=== PATIENT | male | born 1950 | race Hispanic/Latino ===

== ENCOUNTER 2017-10-19 10:09 | Emergency (ER) | payer OTHER ==
--- OUTSIDE RECORDS SUMMARY | 2017-10-19 10:11 | XMS REPORT ---
:1950 Author Organization e[employer] Care Team Providers Name Role Phone Christiane Contreras Provider Role Unavailable Allergies, Adverse Reactions, Alerts Substance Reaction Event Type N.K.D.A. Info Not Available Non Drug Allergy Problems Problem Type Condition Code Onset Dates Condition Status Problem Elevated serum creatinine R79.89 Active Problem Uncontrolled type 2 diabetes E11.65 Active mellitus without complication, without long-term current use of insulin Problem Elevated blood pressure reading in R03.0 Active office without diagnosis of hypertension Problem Vitamin D deficiency E55.9 Active Problem Eosinophilia D72.1 Active Problem Cough R05 Active Problem Erectile dysfunction N52.9 Active Problem Pure hypercholesterolemia E78.00 Active Problem Former smoker Z87.891 Active Problem Onychomycosis B35.1 Active Assessment Eosinophilia D72.1 Active Assessment Elevated serum creatinine R79.89 Active Assessment Elevated blood pressure reading in R03.0 Active office without diagnosis of hypertension Assessment Vitamin D deficiency E55.9 Active Assessment Uncontrolled type 2 diabetes E11.65 Active mellitus without complication, without long-term current use of insulin Assessment Pure hypercholesterolemia E78.00 Active Medications Medication Code Code Instructions Start End Status Dosage System Date Date Vitamin D3 [facility] 03813876420 50,000 PO once Active one tab a week Jublia [facility] 14242753797 10 % Externally Active 1 application Once a day to affected area Metformin HCl ND 00673538306 500 MG Orally Active 1 tablet with Twice a day meals Cialis [facility] 89788911130 10 MG Orally Active 1 tablet as needed Meclizine HCl ND 69167525310 25 MG Orally 4x Active 1 tablet as a day needed Results No Known Results Summary Purpose eClinicalWorks Submission
[2017-10-19] MEDS ORDERED: NA CHLORIDE 0.9% 1,000 ML ONE (10:52)
[2017-10-19 11:12] LABS: Absolute Lymphocytes (CBC) 1.4 K/uL (0.7-4.9); Absolute Neutrophil 2.4 K/uL (1.8-8.0); Basophils % 0.3 % (0-1.3); Eosinophils % 1.9 % (0-4.4); Hematocrit 46.9 % (39.6-49.0); Lymphocytes % 28.7 % (15.3-44.8); MCH 32.8 pg (27.0-35.0); MCV 95.7 fL (80-100); MPV 9.2 fL (7.6-11.3); Monocytes % 20.6 % (3.3-12.3)
[2017-10-19 11:23] LABS: Urine Bacteria <20 /HPF (NONE SEEN); Urine Culture Reflex Order NOT NEEDED; Urine Mucus 1+ /HPF (NONE SEEN); Urine RBC <5 /HPF (NONE SEEN)
[2017-10-19 11:23] LABS: Urine Blood NEGATIVE (NEG); Urine Glucose NEGATIVE (NEG); Urine Protein NEGATIVE (NEG); Urine pH 5.5 (5.0-7.0)
[2017-10-19 11:24] LABS: Albumin 3.7 g/dL (3.4-5.0); Bilirubin Direct 0.1 mg/dL (0-0.2); Bilirubin Total 0.5 mg/dL (0.2-1.0); Protein, Total 7.6 g/dL (6.4-8.2)
--- NOTE | 2017-10-19 12:18 | RAD REPORT ---
EXAM DESCRIPTION: CT - Abdomen Pelvis W Contrast - 10/19/2017 12:03 pm CLINICAL HISTORY: Abdominal pain, diarrhea COMPARISON: None. TECHNIQUE: Biphasic, helical CT imaging of the abdomen and pelvis was performed following 100 ml non -ionic IV contrast. No oral contrast administered. All CT scans are performed using dose optimization technique as appropriate and may include automated exposure control or mA/KV adjustment according to patient size. FINDINGS: No suspicious findings in the lung bases. The liver, spleen, and pancreas show no suspicious findings. Gallbladder and biliary tree are also wi thout suspicious finding. Symmetric renal function is seen with no hydronephrosis or suspicious renal mass. No bladder abnormal ity. No gastric dilatation or gastric wall thickening. Numerous fluid-filled nondilated small bowel loops are present. No transition point, mass or focal wall thickening. The appendix is normal. No dilation of the colon and no focal mass or wall thickening identified. No free air, free fluid or inflammator y stranding. No hernia, mass or bulky lymphadenopathy. No adrenal abnormality. No suspicious bony findings. Prominent vascular calcifications. IMPRESSION: Small bowel enteritis pattern with no obstruction, free air or surgically emergent findi ng. Appendix and colon show no acute findings.
--- NOTE | 2017-10-19 13:04 | ER ---
Nurse's Notes [facility] Name: Hieu Carias Age: 67 yrs Sex: Male : 1950 Arrival Date: 10/19/2017 Time: 10:11 Bed 17 Private MD: Christiane Contreras Diagnosis: Diarrhea, unspecified;Viral gastroenteritis Presentation: 10/19 10:15 Presenting complaint: states: Diarrhea for 2 days. Improved with 1 dose of Imodium aj but diarrhea returned the next day. Transition of care: patient was not received from another setting of care. Onset of symptoms was November 06, 2017. Risk Assessment: Do you want to hurt yourself or someone else? Patient reports no desire to harm self or others. Initial Sepsis Screen: Does the patient meet any 2 criteria? No. Patient's initial sepsis screen is negative. Does the patient have a suspected source of infection? No. Patient's initial sepsis screen is negative. Care prior to arrival: None. 10:15 Method Of Arrival: Ambulatory aj 10:15 Acuity: ESDRAS 3 aj Triage Assessment: 10:17 General: Appears in no apparent distress. comfortable, Behavior is calm, cooperative, aj appropriate for age. Pain: Denies pain. Neuro: Level of Consciousness is awake, alert, obeys commands, Oriented to person, place, time, situation, Appropriate for age. Respiratory: Airway is patent Respiratory effort is even, unlabored, Respiratory pattern is regular, symmetrical. GI: Abdomen is flat, non-distended, Reports diarrhea. Derm: Skin is intact, is healthy with good turgor, Skin is pink, warm \T\ dry. normal. Historical: - Allergies: 10:17 No Known Allergies; aj - Home Meds: 10:17 Metformin Oral [Active]; unknown acid reflux med [Active]; aj - PMHx: 10:17 Diabetes - NIDDM; GERD; aj - PSHx: 10:17 None; aj - Immunization history:: Adult Immunizations up to date. - Social history:: Smoking status: Patient/guardian denies using tobacco, Patient uses alcohol, on a daily basis. - Ebola Screening: : Patient negative for fever greater than or equal to 101.5 degrees Fahrenheit, and additional compatible Ebola Virus Disease symptoms Patient denies exposure to infectious person Patient denies travel to an Ebola-affected area in the 21 days before illness onset No symptoms or risks identified at this time. Screenin:15 Abuse screen: Denies threats or abuse. Denies injuries from another. Nutritional cc3 screening: No deficits noted. Tuberculosis screening: No symptoms or risk factors identified. Fall Risk None identified. Assessment: 10:44 Reassessment: provider in room;. cc3 11:05 Reassessment: Patient and/or family updated on plan of care and expected duration. Pain cc3 level reassessed. Patient is alert, oriented x 3, equal unlabored respirations, skin warm/dry/pink. awaiting results and POC;. Vital Signs: 10:17 BP 124 / 82; Pulse 84; Resp 16; Temp 97.5; Pulse Ox 98% on R/A; Weight 75.75 kg; Height aj 5 ft. 7 in. (170.18 cm); 11:05 BP 132 / 74; Pulse 65; Resp 18; Pulse Ox 100% on R/A; cc3 11:51 BP 133 / 75; Pulse 65; Resp 17; Pulse Ox 98% on R/A; mh5 13:15 BP 119 / 84; Pulse 66; Resp 17; Pulse Ox 98% on R/A; cc3 10:17 Body Mass Index 26.16 (75.75 kg, 170.18 cm) ED Course: 10:11 Patient arrived in ED. mr 10:11 Christiane Contreras MD is Private Physician. mr 10:15 Patient has correct armband on for positive identification. Placed in gown. Bed in low cc3 position. Call light in reach. Side rails up X 1. Adult w/ patient. 10:16 Triage completed. aj 10:17 Arm band placed on right wrist. Patient placed in an exam room. aj 10:26 Armin Mathias NP is PHCP. pm1 10:26 Ashok Dawkins MD is Attending Physician. pm1 10:44 Inserted saline lock: 20 gauge in right antecubital area, using aseptic technique. cc3 12:04 CT Abd/Pelvis - W/Contrast: IV contrast only In Process Unspecified. EDMS 12:15 CT completed. Patient tolerated procedure well. Patient moved back from CT. mw3 13:26 No provider procedures requiring assistance completed. IV discontinued, intact, cc3 bleeding controlled, No redness/swelling at site. Pressure dressing applied. Administered Medications: 10:50 Drug: NS 0.9% 1000 ml Route: IV; Rate: 1000 ml; Site: right antecubital; cc3 12:15 Follow up: IV Status: Completed infusion; IV Intake: 1000ml cc3 Intake: 12:15 IV: 1000ml; Total: 1000ml. cc3 Outcome: 13:04 Discharge ordered by MD. pm1 13:26 Discharged to home ambulatory, with family. cc3 13:26 Condition: stable 13:26 Discharge instructions given to patient, family, Instructed on discharge instructions, follow up and referral plans. medication usage, Demonstrated understanding of instructions, follow-up care, medications, Prescriptions given X 1. 13:28 Patient left the ED. cc3 Signatures: Dispatcher [employer] Geri Hurtado RN RN aj Rivera, Maria mr Marinas, Patrick, NP ENVIRONMENTAL MARKETING REPRESENTATIVE pm1 Rafaela Freedman 5 Juanita Thomas mw3 Betty Matthew cc3
--- NOTE | 2017-10-19 13:04 | EDPHYS ---
Physician Documentation [facility] Name: Hieu Carias Age: 67 yrs Sex: Male : 1950 Arrival Date: 10/19/2017 Time: 10:11 Bed 17 Private MD: Christiane Contreras ED Physician Ashok Dawkins HPI: 10/19 11:00 This 67 yrs old Male presents to ER via Ambulatory with complaints of Diarrhea.pm1 11:00 The patient presents to the emergency department with diarrhea, 12 times since the pm1 onset of symptoms. Onset: The symptoms/episode began/occurred 3 day(s) ago. Possible causes: unknown, sick contacts, by family, . The symptoms are aggravated by food , The symptoms are alleviated by nothing. Associated signs and symptoms: Pertinent positives: abdominal pain right after diarrhea that resolves, Pertinent negatives: dysuria, fever. Severity of symptoms: Pain is currently a 0 / 10. The patient has not experienced similar symptoms in the past. The patient has not recently seen a physician. Historical: - Allergies: 10:17 No Known Allergies; aj - Home Meds: 10:17 Metformin Oral [Active]; unknown acid reflux med [Active]; aj - PMHx: 10:17 Diabetes - NIDDM; GERD; aj - PSHx: 10:17 None; aj - Immunization history:: Adult Immunizations up to date. - Social history:: Smoking status: Patient/guardian denies using tobacco, Patient uses alcohol, on a daily basis. - Ebola Screening: : Patient negative for fever greater than or equal to 101.5 degrees Fahrenheit, and additional compatible Ebola Virus Disease symptoms Patient denies exposure to infectious person Patient denies travel to an Ebola-affected area in the 21 days before illness onset No symptoms or risks identified at this time. ROS: 11:00 Constitutional: Negative for fever, chills, and weight loss, Eyes: Negative for injury, pm1 pain, redness, and discharge, ENT: Negative for injury, pain, and discharge, Neck: Negative for injury, pain, and swelling, Cardiovascular: Negative for chest pain, palpitations, and edema, Respiratory: Negative for shortness of breath, cough, wheezing, and pleuritic chest pain. 11:00 Back: Negative for injury and pain, : Negative for injury, bleeding, discharge, and swelling, MS/Extremity: Negative for injury and deformity, Skin: Negative for injury, rash, and discoloration. 11:00 Neuro: Negative for headache, weakness, numbness, tingling, and seizure. 11:00 Abdomen/GI: Positive for abdominal pain, diarrhea, Negative for nausea and vomiting, black/tarry stool, rectal pain, rectal bleeding. Exam: 11:00 Constitutional: This is a well developed, well nourished patient who is awake, alert, pm1 and in no acute distress. Head/Face: Normocephalic, atraumatic. Eyes: Pupils equal round and reactive to light, extra-ocular motions intact. Lids and lashes normal. Conjunctiva and sclera are non-icteric and not injected. Cornea within normal limits. Periorbital areas with no swelling, redness, or edema. ENT: Nares patent. No nasal discharge, no septal abnormalities noted. Tympanic membranes are normal and external auditory canals are clear. Oropharynx with no redness, swelling, or masses, exudates, or evidence of obstruction, uvula midline. Mucous membranes moist. Neck: Trachea midline, no thyromegaly or masses palpated, and no cervical lymphadenopathy. Supple, full range of motion without nuchal rigidity, or vertebral point tenderness. No Meningismus. Chest/axilla: Normal chest wall appearance and motion. Nontender with no deformity. No lesions are appreciated. Cardiovascular: Regular rate and rhythm with a normal S1 and S2. No gallops, murmurs, or rubs. Normal PMI, no JVD. No pulse deficits. Respiratory: Lungs have equal breath sounds bilaterally, clear to auscultation and percussion. No rales, rhonchi or wheezes noted. No increased work of breathing, no retractions or nasal flaring. 11:00 Back: No spinal tenderness. No costovertebral tenderness. Full range of motion. Skin: Warm, dry with normal turgor. Normal color with no rashes, no lesions, and no evidence of cellulitis. MS/ Extremity: Pulses equal, no cyanosis. Neurovascular intact. Full, normal range of motion. 11:00 Abdomen/GI: Inspection: abdomen appears normal, Bowel sounds: normal, Palpation: abdomen is soft and non-tender, in all quadrants. 11:00 Neuro: Orientation: is normal, Motor: is normal, moves all fours, Gait: is steady, at a normal pace, without difficulty. Vital Signs: 10:17 BP 124 / 82; Pulse 84; Resp 16; Temp 97.5; Pulse Ox 98% on R/A; Weight 75.75 kg; Height aj 5 ft. 7 in. (170.18 cm); 11:05 BP 132 / 74; Pulse 65; Resp 18; Pulse Ox 100% on R/A; cc3 11:51 BP 133 / 75; Pulse 65; Resp 17; Pulse Ox 98% on R/A; mh5 13:15 BP 119 / 84; Pulse 66; Resp 17; Pulse Ox 98% on R/A; cc3 10:17 Body Mass Index 26.16 (75.75 kg, 170.18 cm) aj MDM: 10:41 Patient medically screened. pm1 13:01 Data reviewed: vital signs. Data interpreted: Pulse oximetry: on room air is 98 %. pm1 Interpretation: normal. Counseling: I had a detailed discussion with the patient and/or guardian regarding: the historical points, exam findings, and any diagnostic results supporting the discharge/admit diagnosis, lab results, radiology results, the need for outpatient follow up, to return to the emergency department if symptoms worsen or persist or if there are any questions or concerns that arise at home. 10/19 10:46 Order name: Basic Metabolic Panel; Complete Time: 12:26 pm10/19 10:46 Order name: CBC with Diff; Complete Time: 13:26 pm10/19 10:46 Order name: Creatinine for Radiology; Complete Time: 12:26 pm10/19 10:46 Order name: Hepatic Function; Complete Time: 12:26 pm10/19 10:46 Order name: Lipase; Complete Time: 12:26 pm10/19 10:46 Order name: Urine Microscopic Only; Complete Time: 12:26 pm10/19 10:46 Order name: IV Saline Lock; Complete Time: 10:46 pm10/19 10:46 Order name: Labs collected and sent; Complete Time: 10:46 pm10/19 10:46 Order name: Urine Dipstick-Ancillary (obtain specimen); Complete Time: 10:46 pm10/19 10:46 Order name: CT Abd/Pelvis - W/Contrast: IV contrast only; Complete Time: 12:26 pm10/19 11:13 Order name: Manual Differential; Complete Time: 13:26 EDSC 10/19 11:16 Order name: Urine Dipstick--Ancillary (enter results); Complete Time: 12:26 bd Administered Medications: 10:50 Drug: NS 0.9% 1000 ml Route: IV; Rate: 1000 ml; Site: right antecubital; cc3 12:15 Follow up: IV Status: Completed infusion; IV Intake: 1000ml cc3 Disposition: 14:38 Co-signature as Attending Physician, Ashok Dawkins MD. rn Disposition: 10/19/17 13:04 Discharged to Home. Impression: Diarrhea, unspecified, Viral gastroenteritis. - Condition is Stable. - Discharge Instructions: Food Choices to Help Relieve Diarrhea, Adult, Diarrhea, Adult, Viral Gastroenteritis, Adult. - Prescriptions for Bentyl 20 mg Oral Tablet - take 1 tablet by ORAL route every 6 hours As needed; 20 tablet. - Medication Reconciliation Form, Thank You Letter, Antibiotic Education, Prescription Opioid Use form. - Follow up: Emergency Department; When: As needed; Reason: Worsening of condition. Follow up: Private Physician; When: 2 - 3 days; Reason: Recheck today's complaints, Continuance of care, Re-evaluation by your physician. - Problem is new. - Symptoms have improved. Signatures: Dispatcher [employer] Geri Hurtado RN RN aj Nieto, Roman, MD MD rn Marinas, Patrick, CANDY SPREADER HELPER CANDY SPREADER HELPER pm1 Betty Matthew cc3 Corrections: (The following items were deleted from the chart) 13:28 13:04 10/19/2017 13:04 Discharged to Home. Impression: Diarrhea, unspecified; Viral cc3 gastroenteritis. Condition is Stable. Forms are Medication Reconciliation Form, Thank You Letter, Antibiotic Education, Prescription Opioid Use. Follow up: Emergency Department; When: As needed; Reason: Worsening of condition. Follow up: Private Physician; When: 2 - 3 days; Reason: Recheck today's complaints, Continuance of care, Re-evaluation by your physician. Problem is new. Symptoms have improved. pm1
[2017-10-19 13:15] LABS: Blood Morphology Comment NOT SEEN (NOT SEEN); Platelet Estimate ADEQ
== END 2017-10-19 13:28 | disposition home or self-care (01) ==
LOC: ER 10:09
DX: A08.4 Viral intestinal infection, unspecified (principal); E11.9 Type 2 diabetes mellitus without complications; Z79.84 Long term (current) use of oral hypoglycemic drugs; K21.9 Gastro-esophageal reflux disease without esophagitis; R19.7 Diarrhea, unspecified
CPT/HCPCS: 36415; 74177; 80048; 80076; 83690; 85025; J7030; Q9967; 81003; 81015; 96360; 99284

== ENCOUNTER 2024-02-05 08:58 | Emergency (ER) | payer OTHER ==
--- NOTE | 2024-02-05 10:44 | RAD REPORT ---
Procedure: Chest Single View HISTORY: Cough COMPARISON: 2018 FINDINGS: The lungs appear clear of acute infiltrate. No significant pleural effusion noted. The heart is normal size. IMPRESSION: No acute abnormality is displayed.
--- NOTE | 2024-02-05 10:54 | EDPHYS ---
Physician Documentation [facility] Name: Hieu Carias Age: 73 yrs Sex: Male : 1950 Arrival Date: 02/05/2024 Time: 08:58 Bed 30 Private MD: ED Physician Vinnie Campos HPI: 02/04 09:21 This 73 yrs old Male presents to ER via Ambulatory with complaints of Flu ec2 Symptoms. 09:21 Patient arrives today for 1 week of URI symptoms. Tested positive for influenza 1 week ec2 ago today. Patient reports significant persistent cough. Has been having some diarrheal symptoms, has been prescribed Tamiflu. No vomiting, tolerating fluids without issue.. Historical: - Allergies: 09:20 No Known Allergies; ph - PMHx: 09:20 Diabetes - NIDDM; GERD; ph - Immunization history:: Adult Immunizations unknown. - Infectious Disease History:: Denies. - Social history:: Smoking status: Patient denies any tobacco usage or history of. ROS: 09:21 Constitutional: as per hpi ec2 Exam: 09:21 Constitutional: GEN: NAD Head: atraumatic Eyes: EOMI Ears: External ears are ec2 normal. CV: regular rate LUNGS: no respiratory distress, no wheezes, no rales, rhonchi ABD: non-distended SKIN: no evidence of rashes MSK: no evidence of trauma Vital Signs: 09:18 BP 115 / 75; Pulse 87; Resp 18; Temp 97.8(O); Pulse Ox 96% on R/A; ph 11:21 BP 112 / 75; Pulse 86; Resp 16; Pulse Ox 97% on R/A; db MDM: 09:04 Medical Screening Exam initiated ec2 09:21 Data reviewed: vital signs, nurses notes. ED course: Patient arrives today for ec2 evaluation of URI symptoms symptoms. Examination is remarkable for well-appearing nontoxic hemodynamically stable individual with a reassuring cardiopulmonary examination. Will obtain chest x-ray to evaluate for postviral pneumonia. Suspect sequela of patient's viral illness.. 10:53 ED course: Chest x-ray independently reviewed and interpreted by me, shows no acute ec2 intrathoracic process.. 02/04 09:20 Order name: CXR XRAY; Complete Time: 10:53 ec2 Administered Medications: No medications were administered Disposition Summary: 02/05/24 10:53 Discharge Ordered Notes: Location: Home ec2 Condition: Stable ec2 Diagnosis - Viral infection, unspecified ec2 Followup: ec2 - With: Private Physician - When: - Reason: Re-evaluation by your physician Discharge Instructions: - Discharge Summary Sheet ec2 - Viral Illness, Adult ec2 Forms: - Medication Reconciliation Form ec2 - Antibiotic Education ec2 - Prescription Opioid Use ec2 - Patient Portal Instructions ec2 - Leadership Thank You Letter ec2 Prescriptions: - Tessalon Perles 100 mg Oral Capsule - take 1 capsule ORAL route every 8 hours As needed; 15 capsule; Refills: 0, ec2 Product Selection Permitted Signatures: Dispatcher [employer] María Elena Johnson RN RN Vinnie Campos MD MD ec2
--- NOTE | 2024-02-05 10:54 | ER ---
Nurse's Notes [facility] Name: Hieu Carias Age: 73 yrs Sex: Male : 1950 Arrival Date: 02/05/2024 Time: 08:58 Bed 30 Private MD: Diagnosis: Viral infection, unspecified Presentation: 02/04 09:18 Chief complaint: Spouse and/or significant other states: Dx w/ flu a week ago, Tamiflu ph not helping, still has a cough, no fever. Coronavirus screen: Vaccine status: Patient reports receiving the 2nd dose of the covid vaccine. Ebola Screen: No symptoms or risks identified at this time. Initial Sepsis Screen: Does the patient meet any 2 criteria? No. Patient's initial sepsis screen is negative. Does the patient have a suspected source of infection? No. Patient's initial sepsis screen is negative. Risk Assessment: Do you want to hurt yourself or someone else? Patient reports no desire to harm self or others. Onset of symptoms was February 05, 2024. 09:18 Method Of Arrival: Ambulatory ph 09:18 Acuity: ESDRAS 4 ph Triage Assessment: :20 General: Appears in no apparent distress. comfortable, well groomed, Behavior is calm, ph cooperative, appropriate for age, Denies fever. Pain: Denies pain. Pain: Denies pain. Neuro: Level of Consciousness is awake, alert, obeys commands, Oriented to person, place, time, situation. Respiratory: Reports cough that is Airway is patent Respiratory effort is even, unlabored, Respiratory pattern is regular, symmetrical. Derm: Skin is pink, warm \T\ dry. Historical: - Allergies: : No Known Allergies; ph - PMHx: : Diabetes - NIDDM; GERD; ph - Immunization history:: Adult Immunizations unknown. - Infectious Disease History:: Denies. - Social history:: Smoking status: Patient denies any tobacco usage or history of. Screenin: [facility] ED Fall Risk Assessment (Adult) History of falling in the last 3 months, ph including since admission No falls in past 3 months (0 pts) Confusion or Disorientation No (0 pts) Intoxicated or Sedated No (0 pts) Impaired Gait No (0 pts) Mobility Assist Device Used No (0 pt) Altered Elimination No (0 pt) Score/Fall Risk Level 0 - 2 = Low Risk Oriented to surroundings, Maintained a safe environment, Hourly rounding (assess needs \T\ fall precautionary measures) done, Used ambulatory aids as needed (educated on \T\ assisted with). Abuse screen: Denies threats or abuse. Denies injuries from another. Nutritional screening: No deficits noted. Tuberculosis screening: No symptoms or risk factors identified. Assessment: 11:22 General: SEE TRIAGE ASSESSMENT. ph 11:22 Reassessment: Patient appears in no apparent distress at this time. Patient and/or db family updated on plan of care and expected duration. Pain level reassessed. Patient is alert, oriented x 3, equal unlabored respirations, skin warm/dry/pink. General: Appears in no apparent distress. comfortable, Behavior is calm, cooperative. Neuro: Level of Consciousness is awake, alert, obeys commands, Oriented to person, place, time, situation. Respiratory: Airway is patent Respiratory effort is even, unlabored, Respiratory pattern is regular, symmetrical. Vital Signs: 09:18 BP 115 / 75; Pulse 87; Resp 18; Temp 97.8(O); Pulse Ox 96% on R/A; ph 11:21 BP 112 / 75; Pulse 86; Resp 16; Pulse Ox 97% on R/A; db ED Course: 09:01 Patient arrived in ED. ec2 09:01 Vinnie Campos MD is Attending Physician. ec2 09:07 María Elena Ortiz, RN is Primary Nurse. ph 09:20 Triage completed. ph 09:20 Arm band placed on Patient placed in an exam room, on pulse oximetry. ph 10:43 CXR XRAY In Process Unspecified. EDMS 11:20 Patient has correct armband on for positive identification. Bed in low position. Call light in reach. Side rails up X2. Pulse ox on. NIBP on. 11:22 Provided Education on: DISCHARGE . db 11:22 Assist provider with bone marrow aspiration. Patient did not have IV access during this emergency room visit. Administered Medications: No medications were administered Medication: 11:20 VIS not applicable for this client. ph Outcome: 10:53 Discharge ordered by MD. ec2 11:22 Discharged to home ambulatory, db 11:22 Condition: stable 11:22 Discharge instructions given to patient, Instructed on discharge instructions, follow up and referral plans. Prescriptions given X 1, 11:23 Patient left the ED. db Signatures: Dispatcher [employer] María Elena Johnson RN RN ph Benton, Danielle, RN RN Vinnie Mendoza MD MD ec2
[2024-02-05 13:33] VITALS: TEMP 97.8
[2024-02-05 13:34] VITALS: BP 112/75; O2SAT 97
== END 2024-02-05 11:23 | disposition home or self-care (01) ==
LOC: ER 08:58
DX: B34.9 Viral infection, unspecified (principal); E11.9 Type 2 diabetes mellitus without complications; K21.9 Gastro-esophageal reflux disease without esophagitis
CPT/HCPCS: 71045; 99284